=== PATIENT | female | born 1945 | race Two or more races ===

== ENCOUNTER 2021-02-13 08:22 | Outpatient (CLI) | payer OTHER | END 2021-02-13 08:27 | disposition home or self-care (01) | LOC: TOM 08:22 | PROVIDERS: ATTEND Specialist | DX: N84.0 Polyp of corpus uteri (principal); K43.2 Incisional hernia without obstruction or gangrene; K40.90 Unilateral inguinal hernia, without obstruction or gangrene, not specified as recurrent; K57.90 Diverticulosis of intestine, part unspecified, without perforation or abscess without bleeding ==

== ENCOUNTER 2021-02-20 05:00 | Day surgery (SDC) | payer OTHER | END 2021-02-20 13:50 | disposition home or self-care (01) | LOC: CIR.AMB 05:00 | PROVIDERS: ATTEND Specialist | DX: K40.90 Unilateral inguinal hernia, without obstruction or gangrene, not specified as recurrent (principal); Z20.822 Contact with and (suspected) exposure to COVID-19 ==